=== PATIENT | male | born 1930 | race Two or more races ===

== ENCOUNTER 2017-08-22 17:29 | Emergency (ER) | payer OTHER ==
[~2017-08-22] VITALS: Ht 165.1 cm; Wt 81.6 kg
== END 2017-08-22 18:28 | disposition home or self-care (01) ==
LOC: ER 17:29
DX: R05 Cough (principal)

== ENCOUNTER → 2017-10-21 07:44 | Outpatient (CLI) | payer OTHER | END | disposition home or self-care (01) | LOC: LAB 07:44 | DX: I10 Essential (primary) hypertension (principal); E11.9 Type 2 diabetes mellitus without complications; E03.8 Other specified hypothyroidism; E78.2 Mixed hyperlipidemia ==

== ENCOUNTER → 2018-11-06 | Outpatient (CLI) | payer OTHER | END | disposition home or self-care (01) | LOC: LAB 08:26 | DX: E03.8 Other specified hypothyroidism (principal); I10 Essential (primary) hypertension; E11.9 Type 2 diabetes mellitus without complications; E78.2 Mixed hyperlipidemia ==

== ENCOUNTER 2018-12-03 09:14 | Outpatient (CLI) | payer OTHER | END 2018-12-03 09:27 | disposition home or self-care (01) | LOC: MRI 09:14 | DX: F01.50 Vascular dementia, unspecified severity, without behavioral disturbance, psychotic disturbance, mood disturbance, and anxiety (principal); R55 Syncope and collapse | CPT/HCPCS: 70551 ==

== ENCOUNTER 2018-12-23 09:36 | Outpatient (CLI) | payer OTHER | END 2018-12-23 09:45 | disposition home or self-care (01) | LOC: SONOGRAMA 09:36 → MAMO-SONO 10:15 | DX: M19.91 Primary osteoarthritis, unspecified site (principal) ==

== ENCOUNTER 2018-12-28 07:50 | Outpatient (CLI) | payer OTHER | END 2018-12-28 08:21 | disposition home or self-care (01) | LOC: NUCLEAR 07:50 | DX: I63.30 Cerebral infarction due to thrombosis of unspecified cerebral artery (principal); R55 Syncope and collapse ==

== ENCOUNTER 2019-05-04 07:39 | Outpatient (CLI) | payer OTHER | END 2019-05-04 15:49 | disposition home or self-care (01) | LOC: LAB 07:39 | DX: R62.59 Other lack of expected normal physiological development in childhood (principal); E03.8 Other specified hypothyroidism; E78.49 Other hyperlipidemia; R10.84 Generalized abdominal pain ==

== ENCOUNTER 2019-05-06 09:15 | Outpatient (CLI) | payer OTHER | END 2019-05-06 14:18 | disposition home or self-care (01) | LOC: LAB 09:15 | DX: R62.59 Other lack of expected normal physiological development in childhood (principal); E03.8 Other specified hypothyroidism; Z12.11 Encounter for screening for malignant neoplasm of colon; E78.49 Other hyperlipidemia; R10.84 Generalized abdominal pain ==